=== PATIENT | male | born 1970 | race African-American/Black ===

== ENCOUNTER → 2016-12-01 | Day surgery (SDC) | payer OTHER ==
[~2016-12-01] MED LIST: ASPI325T PO; KETOROLAC TROMETHAMINE 30 MG/ML (IVP) VIAL IV PUSH ONE; LACTATED RINGER'S 1000 ML INJ 1,000 ML ONE; LIDOCAINE 1%/EPINEPHrine 1:100,000 SOLN 20 ML VIAL ONE; MIDAZOLAM HCL 2 MG/2 ML VIAL ONE; ONDANSETRON HCL 4 MG/2 ML VIAL IV PUSH ONE; PROPOFOL 500 MG/50 ML BTL IV ONE
--- NOTE | 2016-12-01 11:40 | TN ---
cc: JOSE BILLINGSLEY M.D. DATE OF SURGERY: 12/01/2016 PREOPERATIVE DIAGNOSIS 3 cm lipomatous mass right lateral sacrum. POSTOPERATIVE DIAGNOSIS 3 cm lipomatous mass, right lateral sacrum. PROCEDURE Excision multilobulated 3 cm lipomatous mass right lateral sacrum SURGEON Dr. Jose Billingsley ANESTHESIA General [facility]IVA. Plus 1% lidocaine with epinephrine. INDICATIONS A pleasant 46-year-old gentleman who has experienced pain associated with a lump overlying the right lateral sacrum. It is worse with sitting, standing, it does not appear to be activity related. He had a MRI of the pelvis and the area of concern did show a fat density. He feels removing it may be helpful. INTRAOPERATIVE FINDINGS Multilobulated lipomatous mass excised and sent to pathology. ESTIMATED BLOOD LOSS: Estimated blood loss is minimal. DESCRIPTION OF PROCEDURE IN DETAIL The patient identified as Abhi Bradley and taken to operating room and placed in the left lateral decubitus position with all pressure points padded on a beanbag an axillary roll. The area of concern has been marked in the holding area. His right lower back was prepped and draped in usual sterile fashion with Betadine. Following beginning of intravenous anesthesia. Proposed incision over the area of concern was made with a marking pen. A time-out procedure was performed. Following completion time-out procedure everyone's satisfaction within the room 1% lidocaine with epinephrine was injected in the skin and subcutaneous fatty tissue. The incision was carried out with scalpel. Hemostasis controlled with cautery. Dissection posteriorly through the skin in the subcutaneous fatty tissue. A superficial fascial layer was divided and beneath this multilobulated this lipomatous material was identified. It was from surrounding tissues using Metzenbaum scissors. Electrocautery was used on points of bleeding. The lobulated fat and its deep and this was extruded from a small opening the joint down towards the spine. The mass was removed in several pieces. Further palpation. The wound demonstrated no additional abnormal tissue. The was irrigated copiously with saline. Small bleeding points controlled with cautery. Wound was closed in layers using 3-0 Vicryl and the fascia which was reapproximated interrupted sutures and the skin was approximated running 4-0 Monocryl subcuticular suture. Dressings were applied, Mastisol inch brown Steri-Strips, gauze and Tegaderm. The patient tolerated the procedure without apparent complication. Sponge, needle and instrument counts were correct at the case. MD MILE Dockery/ambrosio /10:07 AM /11:18 AM
== END | disposition home or self-care (01) ==
LOC: ESDC 07:43
PROVIDERS: ATTEND Surgery Trauma Surgery
DX: D17.1 Benign lipomatous neoplasm of skin and subcutaneous tissue of trunk (principal)
CPT/HCPCS: 00300; 21931; 88304; J1885; J2250; J2405; J3010; J7120

== ENCOUNTER → 2017-06-13 | Outpatient (CLI) | payer OTHER ==
[~2017-06-13] MED LIST changes: -KETOROLAC TROMETHAMINE 30 MG/ML (IVP) VIAL IV PUSH ONE; -LACTATED RINGER'S 1000 ML INJ 1,000 ML ONE; -LIDOCAINE 1%/EPINEPHrine 1:100,000 SOLN 20 ML VIAL ONE; -MIDAZOLAM HCL 2 MG/2 ML VIAL ONE; -ONDANSETRON HCL 4 MG/2 ML VIAL IV PUSH ONE; -PROPOFOL 500 MG/50 ML BTL IV ONE
[2017-06-13 09:52] LABS: BLOOD, URINE TRACE (NEG); GLUCOSE,URINE NEG (NEG); KETONE, URINE NEG (NEG); MUCUS URINE FEW /lpf (OCC); NITRITE,URINE NEG (NEG); PH, URINE 5.5 (5.0-8.5); URINE COLOR YELLOW (YELLW/STRAW)
[2017-06-13 09:59] LABS: AUTOMATED NEUTROPHIL # 2.3 TH/MM3 (1.8-7.7); BASOPHIL % 0.8 % (0.0-2.0); EOSINOPHIL # 0.1 TH/MM3 (0-0.4); EOSINOPHIL % 1.3 % (0.0-4.0); HEMO FLAGS DIFF FINAL; LYMPH % 38.8 % (9.0-44.0); LYMPHOCYTE # 1.8 TH/MM3 (1.0-4.8); MEAN CELL VOLUME 70.8 FL (80.0-100.0); MEAN CORPUSCULAR HGB CONC 32.4 % (32.0-36.0); MONO % 10.1 % (0.0-8.0); PLATELET COUNT 219 TH/MM3 (150-450); RED BLOOD COUNT 5.23 MIL/MM3 (4.50-5.90); RED CELL DISTRIBUTION WIDTH 14.5 % (11.6-17.2); WHITE BLOOD COUNT 4.6 TH/MM3 (4.0-11.0)
[2017-06-13 10:14] LABS: BICARBONATE 30.3 MEQ/L (21.0-32.0); POTASSIUM 4.4 MEQ/L (3.5-5.1)
[2017-06-13 10:16] LABS: INDIRECT BILIRUBIN 0.3 MG/DL (0.0-0.8); TOTAL BILIRUBIN ADULT 0.4 MG/DL (0.2-1.0)
[2017-06-13 10:23] LABS: HDL CHOLESTEROL 40.7 MG/DL (40.0-60.0); LDL CHOLESTEROL 88 MG/DL (0-99)
[2017-06-13 16:41] LABS: HEMOGLOBIN A1b 1.6 %; HEMOGLOBIN LA1C 1.4 %
== END ==
LOC: CLAB 09:18
PROVIDERS: ATTEND Family Medicine
DX: Z00.00 Encounter for general adult medical examination without abnormal findings (principal)
CPT/HCPCS: 36415; 80048; 80061; 80076; 81001; 83036; 84443; 85025

== ENCOUNTER → 2017-09-18 | Outpatient (CLI) | payer OTHER | LOC: CLAB 11:34 | PROVIDERS: ATTEND Urology | DX: Z12.5 Encounter for screening for malignant neoplasm of prostate (principal) | CPT/HCPCS: 36415; 84153 ==

== ENCOUNTER → 2018-03-13 | Outpatient (CLI) | payer OTHER ==
[2018-03-13 07:09] LABS: AUTOMATED NEUTROPHIL # 2.1 TH/MM3 (1.8-7.7); BASOPHIL % 0.6 % (0.0-2.0); EOSINOPHIL # 0.1 TH/MM3 (0-0.4); EOSINOPHIL % 1.3 % (0.0-4.0); HEMATOCRIT 40.8 % (39.0-51.0); HEMOGLOBIN 12.9 GM/DL (13.0-17.0); LYMPH % 39.9 % (9.0-44.0); LYMPHOCYTE # 1.8 TH/MM3 (1.0-4.8); MEAN CELL VOLUME 72.2 FL (80.0-100.0); MEAN CORPUSCULAR HEMOGLOBIN 22.8 PG (27.0-34.0); MEAN CORPUSCULAR HGB CONC 31.5 % (32.0-36.0); MEAN PLATELET VOLUME 8.3 FL (7.0-11.0); MONO % 11.3 % (0.0-8.0); MONOCYTE # 0.5 TH/MM3 (0-0.9); NEUT % 46.9 % (16.0-70.0); PLATELET COUNT 241 TH/MM3 (150-450); RED BLOOD COUNT 5.65 MIL/MM3 (4.50-5.90); RED CELL DISTRIBUTION WIDTH 15.1 % (11.6-17.2); WHITE BLOOD COUNT 4.5 TH/MM3 (4.0-11.0)
[2018-03-13 07:52] LABS: ALBUMIN 3.8 GM/DL (3.4-5.0); ALT (GPT) 41 U/L (12-78); AST (GOT) 27 U/L (15-37); BICARBONATE 29.9 MEQ/L (21.0-32.0); BLOOD UREA NITROGEN 14 MG/DL (7-18); CALCIUM 8.5 MG/DL (8.5-10.1); CHLORIDE 107 MEQ/L (98-107); CHOLESTEROL 196 MG/DL (120-200); CREATININE 1.17 MG/DL (0.60-1.30); DIRECT BILIRUBIN ADULT 0.1 MG/DL (0.0-0.2); GLOMERULAR FILTRATION RATE 81 ML/MIN (>89); GLUCOSE,FASTING 89 MG/DL (74-99); SODIUM (NA) 143 MEQ/L (136-145)
[2018-03-13 08:05] LABS: ALKALINE PHOSPHATASE 55 U/L (45-117); CHOLESTEROL/ HDL RATIO 4.51 RATIO; HDL CHOLESTEROL 43.4 MG/DL (40.0-60.0); INDIRECT BILIRUBIN 0.2 MG/DL (0.0-0.8); LDL CHOLESTEROL 122 MG/DL (0-99); TOTAL BILIRUBIN ADULT 0.3 MG/DL (0.2-1.0); TOTAL PROTEIN 7.8 GM/DL (6.4-8.2); TRIGLYCERIDES 153 MG/DL (42-150)
[2018-03-13 16:53] LABS: HEMOGLOBIN A1C 6.4 % (4.3-6.0)
== END ==
LOC: CLAB 06:43
PROVIDERS: ATTEND Family Medicine
DX: Z00.00 Encounter for general adult medical examination without abnormal findings (principal)
CPT/HCPCS: 36415; 80048; 80061; 80076; 82043; 82607; 83036; 84443; 85025